=== PATIENT | male | born 1980 | race Caucasian/White ===

== ENCOUNTER 2016-08-25 14:11 | Emergency (ER) | payer SELFPAY ==
[~2016-08-25] VITALS: Ht 162.6 cm; Wt 55.3 kg
[2016-08-25] MEDS ORDERED: CYCL-331 PO ×2 (14:24→15:20)
[2016-08-25] MEDS ORDERED: HYDROcodone/APAP 10/325 1 TAB TABLET ONE (14:37)
[2016-08-25] MEDS ORDERED: HYDROcodone/APAP 10/325 1 TAB TABLET PO ONE (14:45)
--- NOTE | 2016-08-25 14:54 | PHYS DOC ---
Past History Past Medical History: Other Past Surgical History: No Surgical History Alcohol Use: None Drug Use: None Adult General Chief Complaint Chief Complaint: LOWER BACK PAIN OR INJURY HPI HPI Patient is a 36 year old male who presents with complaint of low back pain. Patient states he has history of chronic low back pain. Patient was recently admitted to the hospital for weeks ago [facility] for treatment. Patient had MRI imaging which showed a bulging disc at L4/L5 without cord compression at that time. The patient states that he started having worsening symptoms over the past 2 days. Patient has been taking prescribed Flexeril at home. Patient does admit that he took oxycodone from a friend who offered at to help with his back pain. Patient states that despite treatment he has had minimal relief. The patient is currently wearing a back brace that was given to him from his previous admission. Patient states that he has followed with Dr. Maddox at [facility] who recommended physical therapy upon discharge. Patient states that he initially did physical therapy but states that this started to aggravate his symptoms so he stopped. Patient denies any loss of bowel or bladder control. Patient states he has radiation of pain down both legs which she states has been consistent with previous exacerbations. Patient denies saddle anesthesia. Patient rates his pain currently as 5 out of 10. Patient has been ambulatory but states it has been difficult due to his pain. Review of Systems Review of Systems Constitutional: Denies fever or chills [] Eyes: Denies change in visual acuity, redness, or eye pain [] HENT: Denies nasal congestion or sore throat [] Respiratory: Denies cough or shortness of breath [] Cardiovascular: Denies chest pain or edema [] GI: Denies abdominal pain, nausea, vomiting, bloody stools or diarrhea [] : Denies dysuria or hematuria [] Musculoskeletal: Low back pain [] Integument: Denies rash or skin lesions [] Neurologic: Denies headache, focal weakness or sensory changes [] Current Medications Current Medications Current Medications Medications (Trade) Dose Ordered Sig/Hayder Start Time Stop Time Status Last Admin Dose Admin Acetaminophen/ Hydrocodone Bitart (Lortab 10/325) 1 tab STK-MED ONCE 08/25/16 14:37 08/25/16 14:38 DC Ketorolac Tromethamine (Toradol) 60 mg 1X ONCE 08/25/16 15:00 08/25/16 15:01 08/25/16 14:41 60 MG Orphenadrine Citrate (Norflex) 60 mg 1X ONCE 08/25/16 15:00 08/25/16 15:01 08/25/16 14:42 60 MG Allergies Allergies Allergies Coded Allergies Type Severity Reaction Last Updated Verified No Known Drug Allergies 08/25/16 No Physical Exam Physical Exam Constitutional: Alert, afebrile, appears in moderate discomfort. [] HENT: Normocephalic, atraumatic, bilateral external ears normal, oropharynx moist, no oral exudates, nose normal. [] Eyes: PERRLA, EOMI, conjunctiva normal, no discharge. [] Neck: Normal range of motion, no tenderness, supple, no stridor. [] Cardiovascular:Heart rate regular rhythm, no murmur [] Lungs & Thorax: Bilateral breath sounds clear to auscultation [] Abdomen: Bowel sounds normal, soft, no tenderness, no masses, no pulsatile masses. [] Skin: Warm, dry, no erythema, no rash. [] Back: Bilateral lower lumbar paraspinous muscle tenderness to palpation with palpable spasm, no midline tenderness, no CVA tenderness , no flank ecchymosis. [] Extremities: No tenderness, no cyanosis, no clubbing, ROM intact, no edema. [] Neurologic: Alert and oriented X 3, normal motor function, normal sensory function, no focal deficits noted. [] Current Patient Data Vital Signs Vital Signs Date Time Temp Pulse Resp B/P (MAP) Pulse Ox O2 Delivery O2 Flow Rate FiO2 08/25/16 14:15 98.1 80 20 97 Room Air EKG EKG Not performed [] Radiology/Procedures Radiology/Procedures Not performed [] Course & Med Decision Making Course & Med Decision Making Pertinent Labs and Imaging studies reviewed. (See chart for details) Patient was given hydrocodone, Norflex, and Toradol in the emergency department. On reevaluation, patient's symptoms have improved. The patient will be discharged with Flexeril and prednisone taper. Advise follow-up in 3-5 days patient's primary doctor for further evaluation and return to emergency department for any worsening symptoms. Patient voiced understanding and in agreement with treatment plan. Dragon Disclaimer Dragon Disclaimer This chart was dictated in whole or in part using Voice Recognition software in a busy, high-work load, and often noisy Emergency Department environment. It may contain unintended and wholly unrecognized errors or omissions. Departure Departure: Impression: Primary Impression: Acute exacerbation of chronic low back pain Disposition: HOME, SELF-CARE Condition: IMPROVED Patient Instructions: Back Pain, Adult Additional Instructions: Follow-up with your primary doctor in 3-5 days. Return to the emergency department for any worsening symptoms. Scripts Cyclobenzaprine Hcl (CYCLOBENZAPRINE HCL) 10 Mg Tablet 1 TAB PO TID Y for MUSCLE SPASMS, #90 TAB Prov: DAE SCHMITZ MD 08/25/16 Prednisone (PREDNISONE) 10 Mg Tablet 10 MG PO UD for PREDNISONE TAPER, #39 TAB 0 Refills Take 3 tablets by mouth twice a day for 3 days, then take 2 tablets by mouth twice a day for 3 days, then take 1 tablet by mouth twice a day for 3 days, then take 1 tablet by mouth daily x 3 days, then stop. Prov: DAE SCHMITZ MD 08/25/16 DAE SCHMITZ MD August 25, 2016 14:54
[2016-08-25] MEDS ORDERED: KETOROLAC 60 MG/2 ML VIAL. IM ONE (15:00)
[2016-08-25] MEDS ORDERED: ORPHENADRINE CITRATE 60 MG/2 ML VIAL. IM ONE (15:00)
[2016-08-25] MEDS ORDERED: PRED-220 PO (15:20)
[2016-08-25 15:25] VITALS: BP 121/73
== END 2016-08-25 15:28 | disposition home or self-care (01) ==
LOC: ER 14:11
DX: G89.29 Other chronic pain (principal); M54.5 Low back pain
CPT/HCPCS: 96372; 99284; J1885; J2360

== ENCOUNTER 2019-10-10 17:20 | Emergency (ER) | payer SELFPAY ==
[~2019-10-10] VITALS: Ht 162.6 cm; Wt 50.0 kg
[~2019-10-10 17:20] MED LIST: CYCL-331 PO; PRED-220 PO
--- NOTE | 2019-10-10 17:39 | PHYS DOC ---
Past History Past Medical History: Other Past Surgical History: No Surgical History Alcohol Use: None Drug Use: None General Adult EDM: Chief Complaint: LACERATION/AVULSION HPI: HPI: " .. I was cutting sleeves out off shirt.. I had been swetha.. but the razor cutter slipped and I stabbed my leg...." Patient is a 39 year old male who presents with above hx and complaints of Rt. Thigh anterior 4 cm laceration. Distal neurovascular intact. Can you range of motion of right leg. Laceration irrigated with normal saline and range of motion. Patient does not remember his last tetanus update. No history of immunosuppression. No history of travel outside the [place] area. No specific ill contacts. Patient is working a self-employed contractor Review of Systems: Review of Systems: Constitutional: Denies fever or chills Eyes: Denies change in visual acuity HENT: Denies nasal congestion or sore throat Respiratory: Denies cough or shortness of breath Cardiovascular: Denies chest pain or edema GI: Denies abdominal pain, nausea, vomiting, bloody stools or diarrhea : Denies dysuria Musculoskeletal: Denies back pain or joint pain Integument: Denies rash Complaints of Rt. Thigh laceration. Neurologic: Denies headache, focal weakness or sensory changes Endocrine: Denies polyuria or polydipsia Lymphatic: Denies swollen glands Psychiatric: Denies depression or anxiety Heart Score: Risk Factors: Risk Factors: DM, Current or recent (<one month) smoker, HTN, HLP, family his tory of CAD, obesity. Risk Scores: Score 0 - 3: 2.5% MACE over next 6 weeks - Discharge Home Score 4 - 6: 20.3% MACE over next 6 weeks - Admit for Clinical Observation Score 7 - 10: 72.7% MACE over next 6 weeks - Early Invasive Strategies Family History: Family History: Noncontributory to presentation Current Medications: Current Meds: See nursing for home meds Allergies: Allergies: Allergies Coded Allergies Type Severity Reaction Last Updated Verified No Known Drug Allergies 08/25/16 No Physical Exam: PE: Constitutional: Well developed, well nourished, mild distress, non-toxic appearance. [] HENT: Normocephalic, atraumatic, bilateral external ears normal, oropharynx moist, no oral exudates, nose normal. [] Eyes: PERRLA, EOMI, conjunctiva normal, no discharge. [] Neck: Normal range of motion, no tenderness, supple, no stridor. [] Cardiovascular:Heart rate regular rhythm, no murmur [] Lungs & Thorax: Bilateral breath sounds equal apex with scattered wheezes auscultation [] Abdomen: Bowel sounds normal, soft, no tenderness, no masses, no pulsatile mass es. [] Skin: Warm, dry, no erythema, no rash. [] Back: No tenderness, no CVA tenderness. [] Extremities: No tenderness, no cyanosis, no clubbing, ROM intact, no edema. [] 4 cm laceration anterior thigh right leg Neurologic: Alert and oriented X 3, normal motor function, normal sensory function, no focal deficits noted. [] Psychologic: Affect anxious,, judgement normal, mood normal. [] EKG: EKG: [] Radiology/Procedures: Radiology/Procedures: [] Course & Med Decision Making: Course & Med Decision Making Pertinent Labs and Imaging studies reviewed. (See chart for details) Wound care-procedure note-laceration repair-area laceration cleaned with soap and water and irrigated. Edge wound prepped with Betadine injected lidocaine 2% with epinephrine along wound edge. Reirrigated leg and range of motion with normal saline. Close laceration with 8 luli. A dressing of back to tracing and gauze applied. Patient keep area clean and dry. Patient apply Polysporin 4 times a day. Patient monitor closely for signs of infection or striation. Patient to have luli removed in 10 days. Patient return if any concerns. Patient follow-up primary care. Patient's tetanus was updated. [] Impression- 1. Laceration right thigh 4 cm 2. Tobacco use. Dragon Disclaimer: Dragon Disclaimer: This electronic medical record was generated, in whole or in part, using a voice recognition dictation system. Departure Departure: Disposition: 01 HOME/RESIDENCE PRIOR TO ADM Condition: STABLE Referrals: PCP,NO (PCP) Justification of Admission: Justification of Admission: Justification of Admission Dx: N/A Dragon Disclaimer This chart was dictated in whole or in part using Voice Recognition software in a busy, high-work load, and often noisy Emergency Department environment. It may contain unintended and wholly unrecognized errors or omissions. DEBORA FERREIRA MD Oct 10, 2019 17:38
[2019-10-10 17:45] VITALS: BP 137/68
[2019-10-10] MEDS ORDERED: LIDOCAINE 2%/EPI 1:100,000 20 ML VIAL. IJ ONE (18:00)
[2019-10-10] MEDS ORDERED: BACITRACIN ZINC TOPICAL OINT PACKET. TP ONE (18:00)
[2019-10-10] MEDS ORDERED: IBUPROFEN 600 MG TABLET. PO ONE (18:00)
[2019-10-10] MEDS ORDERED: DIPH,PERTUSS(ACELL),TET VAC/PF 0.5 ML SYRINGE. VAX IM ONE (18:30)
== END 2019-10-10 18:08 | disposition home or self-care (01) ==
LOC: ER 17:20
DX: S71.111A Laceration without foreign body, right thigh, initial encounter (principal); Z72.0 Tobacco use; W26.8XXA Contact with other sharp object(s), not elsewhere classified, initial encounter; Y93.89 Activity, other specified; Y92.89 Other specified places as the place of occurrence of the external cause; Y99.8 Other external cause status
CPT/HCPCS: 12002; 90471; 90715; 99283